=== PATIENT | male | born 1990 | race Asian ===

== ENCOUNTER 2021-05-08 14:47 | Emergency (ER) | payer OTHER ==
[~2021-05-08] VITALS: Ht 177.8 cm; Wt 99.0 kg
[2021-05-08] MEDS ORDERED: ONDA4TAB6 PO (18:24)
[2021-05-08] MEDS ORDERED: VENTAER INH (18:24)
[2021-05-08 18:51] VITALS: BP 117/71
== END 2021-05-08 18:53 | disposition home or self-care (01) ==
LOC: M ED 14:47
DX: U07.1 COVID-19 (principal); F17.200 Nicotine dependence, unspecified, uncomplicated
CPT/HCPCS: 94640; 99283; Q0162